=== PATIENT | male | born 1980 | race American Indian/Alaskan Native ===

== ENCOUNTER 2019-10-09 18:08 | Emergency (ER) | payer SELFPAY ==
--- NOTE | 2019-10-09 20:39 | Emergency Department Report ---
ED ENT HPI - General Chief complaint: Earache Stated complaint: EAR PAIN Time Seen by Provider: 10/09/19 20:09 Source: patient Mode of arrival: Ambulatory Limitations: No Limitations - History of Present Illness Initial comments: Patient is a 39-year-old male presents emergency room with complaints of left ear pain that began 3 days ago. He denies any drainage from the ear, fever. He states his hearing feels slightly muffled in the left ear. Patient denies swimming or getting anything into the ear. He denies any past medical history or allergies to medications. - Related Data Previous Rx's Medication Instructions Recorded Last Taken Type Amoxicillin/Potassium Clav 1 each PO BID 10 Days #20 tablet 10/09/19 Unknown Rx [Augmentin 875-125 Tablet] Ofloxacin 0.3% [Floxin 0.3% Otic] 10 ml DAILY 10 Days #1 bottle 10/09/19 Unknown Rx Allergies Allergy/AdvReac Type Severity Reaction Status Date / Time No Known Allergies Allergy Verified 10/09/19 18:49 ED Dental HPI - General Chief complaint: Earache Stated complaint: EAR PAIN Time Seen by Provider: 10/09/19 20:09 Source: patient Mode of arrival: Ambulatory Limitations: No Limitations - Related Data Previous Rx's Medication Instructions Recorded Last Taken Type Amoxicillin/Potassium Clav 1 each PO BID 10 Days #20 tablet 10/09/19 Unknown Rx [Augmentin 875-125 Tablet] Ofloxacin 0.3% [Floxin 0.3% Otic] 10 ml DAILY 10 Days #1 bottle 10/09/19 U nknown Rx Allergies Allergy/AdvReac Type Severity Reaction Status Date / Time No Known Allergies Allergy Verified 10/09/19 18:49 ED Review of Systems ROS: Stated complaint: EAR PAIN Other details as noted in HPI Comment: All other systems reviewed and negative ED Past Medical Hx - Past Medical History Previous Medical History?: No - Surgical History Past Surgical History?: No - Social History Smoking Status: Never Smoker Substance Use Type: Alcohol, Marijuana - Medications Home Medications: Home Medications Medication Instructions Recorded Confirmed Last Taken Type Amoxicillin/Potassium Clav 1 each PO BID 10 Days #20 tablet 10/09/19 Unknown Rx [Augmentin 875-125 Tablet] Ofloxacin 0.3% [Floxin 0.3% Otic] 10 ml DAILY 10 Days #1 bottle 05/26/20 Unknown Rx ED Physical Exam - General Limitations: No Limitations General appearance: alert, in no apparent distress - Head Head exam: Present: atraumatic, normocephalic - Eye Eye exam: Present: normal appearance - ENT ENT exam: Present: mucous membranes moist, other (right TM and canal are normal, left canal is filled with purulent drainage, unable to visualize TM, no mastoid ttp bilaterally) - Neurological Exam Neurological exam: Present: alert, oriented X3 - Psychiatric Psychiatric exam: Present: normal affect, normal mood - Skin Skin exam: Present: warm, dry, intact ED Course Vital Signs 10/09/19 10/09/19 10/09/19 18:48 18:50 20:56 Temperature 98.1 F 98.2 F Pulse Rate 106 H 92 H Respiratory 14 18 Rate Blood Pressure 154/103 Blood Pressure 156/90 [Left] O2 Sat by Pulse 99 100 Oximetry ED Medical Decision Making - Lab Data Vital Signs 10/09/19 10/09/19 10/09/19 18:48 18:50 20:56 Temperature 98.1 F 98.2 F Pulse Rate 106 H 92 H Respiratory 14 18 Rate Blood Pressure 154/103 Blood Pressure 156/90 [Left] O2 Sat by Pulse 99 100 Oximetry - Medical Decision Making Patient is a 39-year-old male presents emergency room with complaints of left ear pain that began 3 days ago. He denies any drainage from the ear, fever. He states his hearing feels slightly muffled in the left ear. Patient denies swimming or getting anything into the ear. He denies any past medical history or allergies to medications. Vitals are stable. On exam: right TM and canal are normal, left canal is filled with purulent drainage, unable to visualize TM, no mastoid ttp bilaterally. Concern for otitis media with perforation. Given prescription for Augmentin and ofloxacin. advised pt please use medication as prescribed. Please follow-up with a ear nose and throat doctor. Please follow- up with your primary care doctor. Return to emergency room for any new or worsening symptoms. - Differential Diagnosis otitis externa, otitis media, TM perforation, mastoiditis Critical care attestation.: If time is entered above; I have spent that time in minutes in the direct care of this critically ill patient, excluding procedure time. ED Disposition Clinical Impression: Otitis media Qualifiers: Otitis media type: suppurative Chronicity: acute Laterality: left Recurrence: non-recurrent Spontaneous tympanic membrane rupture: with spontaneous rupture Qualified Code(s): H66.012 - Acute suppurative otitis media with spontaneous rupture of ear drum, left ear Otitis externa Qualifiers: Otitis externa type: unspecified type Chronicity: acute Laterality: left Qualified Code(s): H60.502 - Unspecified acute noninfective otitis externa, left ear Disposition: TO HOME OR SELFCARE Is pt being admited?: No Does the pt Need Aspirin: No Condition: Stable Instructions: Otitis Externa (ED), Otitis Media (ED) Additional Instructions: Please use medication as prescribed. Please follow-up with a ear nose and throat doctor. Please follow-up with your primary care doctor. Return to emergency room for any new or worsening symptoms. Prescriptions: Amoxicillin/Potassium Clav [Augmentin 875-125 Tablet] 1 each PO BID 10 Days #20 tablet Ofloxacin 0.3% [Floxin 0.3% Otic] 10 ml DAILY 10 Days #1 bottle Referrals: PRIMARY CAREMD [Primary Care Provider] - 3-5 Days DUONG CABALLERO MD [Staff Physician] - 3-[address] MD [Staff Physician] - 3-5 Days Time of Disposition: 20:37 Print Language: [place]
[2019-10-09 20:57] VITALS: BP 156/90
== END 2019-10-09 20:56 | disposition home or self-care (01) ==
LOC: ED 18:08
DX: H66.012 Acute suppurative otitis media with spontaneous rupture of ear drum, left ear (principal); H60.502 Unspecified acute noninfective otitis externa, left ear; F12.10 Cannabis abuse, uncomplicated
CPT/HCPCS: 99282